=== PATIENT | male | born 1995 | race Caucasian/White ===

== ENCOUNTER 2017-12-01 01:56 | Observation (INO) | payer MEDICARE ==
[2017-12-01 02:34] VITALS: TEMP 98.7; BMI 32.3
--- NOTE | 2017-12-01 02:45 | PDOC ---
History of Present Illness <Elodia Lowe - Last Filed: 12/01/17 05:44> - General History Source: Parent(s) (mother), Other (girlfriend) - History of Present Illness Initial Comments: 12/01/17 02:50 Best Contact:[phone] Pmhx:N/A Pshx:N/A Allergies: NKDA 21-year-old male biba and accompanied with his mother and girlfriend/merry. Patient's girlfriend and mother states patient was sent to [facility] at approximately 1300 hrs. yesterday from his high school after hyperventilating while in school. Patient was in the emergency department for approximately 9 hours there and was discharged. Family states unknown diagnosis. Patient arrived home in [place] approximately one hour ago. As per his girlfriend, he was talking as usual (normal) when he suddenly began to hyperventilate during the disagreement. Patient then insisted on going to the restroom alone. His girlfriend eventually went to the restroom approximately 10 minutes later and found the patient hyperventilating while sitting on the floor. Patient's girlfriend states she does not believe he took any illicit drugs. <Prashanth Berg - Last Filed: 12/01/17 07:02> - General Chief Complaint: Psychiatric Stated Complaint: ANXIETY Time Seen by Provider: 12/01/17 01:57 Past History <Elodia Lowe - Last Filed: 12/01/17 05:44> - Past Medical History COPD: No - Suicide/Smoking/Psychosocial Hx Smoking History: Unknown if ever smoked <Prashanth Berg - Last Filed: 12/01/17 07:02> - Past Medical History Allergies/Adverse Reactions: Allergies Allergy/AdvReac Type Severity Reaction Status Date / Time No Known Allergies Allergy Verified 12/01/17 02:22 Home Medications: Ambulatory Orders NK [No Known Home Medication] 12/01/17 Review of Systems - Review of Systems Able to Perform ROS?: Yes Comments:: 12/01/17 03:44 CONSTITUTIONAL: Absent: fever, chills, diaphoresis, generalized weakness, malaise, loss of appetite HEENT: Absent: rhinorrhea, nasal congestion, throat pain, throat swelling, difficulty swallowing, mouth swelling, ear pain, eye pain, visual Changes CARDIOVASCULAR: Absent: chest pain, loss of consciousness, palpitations, irregular heart rate, peripheral edema RESPIRATORY: Absent: cough, shortness of breath, dyspnea with exertion, orthopnea, wheezing, stridor, hemoptysis GASTROINTESTINAL: Absent: abdominal pain, abdominal distension, nausea, vomiting, diarrhea, constipation, melena, hematochezia GENITOURINARY: Absent: dysuria, frequency, urgency, hesitancy, hematuria, flank pain, genital pain MUSCULOSKELETAL: Absent: myalgia, arthralgia, joint swelling SKIN: Absent: rash, itching, pallor HEMATOLOGIC/IMMUNOLOGIC: Absent: easy bleeding, easy bruising, lymphadenopathy, frequent infections ENDOCRINE: Absent: unexplained weight gain, unexplained weight loss, heat intolerance, cold intolerance NEUROLOGIC: Absent: headache, focal weakness or paresthesias, dizziness, unsteady gait, seizure, mental status changes, bladder or bowel incontinence PSYCHIATRIC: +anxiety Absent: depression, suicidal or homicidal ideation, hallucinations. Is the patient limited Malay proficient: No <Prashanth Berg - Last Filed: 12/01/17 07:02> *Physical Exam - Vital Signs Last Vital Signs Temp Pulse Resp BP Pulse Ox 98.7 F 93 H 14 109/60 98 12/01/17 01:57 12/01/17 03:57 12/01/17 03:57 12/01/17 03:57 12/01/17 03:57 <Elodia Lowe - Last Filed: 12/01/17 05:44> - Vital Signs Last Vital Signs Temp Pulse Resp BP Pulse Ox 98.7 F 123 H 40 H 197/75 100 12/01/17 01:57 12/01/17 01:57 12/01/17 01:57 12/01/17 01:57 12/01/17 01:57 - Physical Exam Comments: 12/01/17 03:45 GENERAL: Well developed, well nourished. Awake and alert. No acute distress. HEENT: Normocephalic, atraumatic. PERRLA, EOMI. No conjunctival pallor. Sclera are non- icteric. Moist mucous membranes. Oropharynx is clear. NECK: Supple. Full ROM. No JVD. Carotid pulses 2+ and symmetric, without bruits. No thyromegaly. No lymphadenopathy. CARDIOVASCULAR: Regular rate and rhythm. No murmurs, rubs, or gallops. Distal pulses are 2+ and symmetric. PULMONARY: No evidence of respiratory distress. Lungs clear to auscultation bilaterally. No wheezing, rales or rhonchi. ABDOMINAL: Soft. Non-tender. Non-distended. No rebound or guarding. No organomegaly. Normoactive bowel sounds. MUSCULOSKELETAL Normal range of motion at all joints. No bony deformities or tenderness. No CVA tenderness. EXTREMITIES: No cyanosis. No clubbing. No edema. No calf tenderness. SKIN: Warm and dry. Normal capillary refill. No rashes. No jaundice. NEUROLOGICAL: Hyperventilating when speaking to him but able to respond. PSYCHIATRIC: Cooperative. Hyperventilation <Prashanth Berg - Last Filed: 12/01/17 07:02> ED Treatment Course - LABORATORY CBC & Chemistry Diagram: 12/01/17 02:20 12/01/17 02:20 - ADDITIONAL ORDERS Additional order review: Laboratory Results 12/01/17 12/01/17 12/01/17 02:49 02:40 02:20 PT with INR INR Sodium Potassium Chloride Carbon Dioxide Anion Gap BUN Creatinine Creat Clearance w eGFR Random Glucose Calcium Total Bilirubin AST ALT Alkaline Phosphatase Total Protein Albumin Urine Color Yellow Urine Appearance Clear Urine pH 6.0 Ur Specific [place] 1.027 Urine Protein Negative Urine Glucose (UA) Negative Urine Ketones Trace H Urine Blood Negative Urine Nitrite Negative Urine Bilirubin Negative Urine Urobilinogen 4.0 e.u/dl Ur Leukocyte Esterase Negative Opiates Screen Negative Methadone Screen Negative Barbiturate Screen Negative Phencyclidine Screen Negative Ur Amphetamines Screen Negative MDMA (Ecstasy) Screen Negative Benzodiazepines Screen Negative Cocaine Screen Negative U Marijuana (THC) Screen Negative Alcohol, Quantitative < 5.0 12/01/17 12/01/17 02:20 02:20 PT with INR 12.80 H INR 1.13 Sodium 141 Potassium 4.0 Chloride 106 Carbon Dioxide 21 Anion Gap 14 BUN 14 Creatinine 1.2 Creat Clearance w eGFR > 60 Random Glucose 87 Calcium 8.9 Total Bilirubin 0.3 AST 23 ALT 28 Alkaline Phosphatase 66 Total Protein 7.7 Albumin 4.2 Urine Color Urine Appearance Urine pH Ur Specific [place] Urine Protein Urine Glucose (UA) Urine Ketones Urine Blood Urine Nitrite Urine Bilirubin Urine Urobilinogen Ur Leukocyte Esterase Opiates Screen Methadone Screen Barbiturate Screen Phencyclidine Screen Ur Amphetamines Screen MDMA (Ecstasy) Screen Benzodiazepines Screen Cocaine Screen U Marijuana (THC) Screen Alcohol, Quantitative 12/01/17 02:20 RBC 4.80 MCV 93.0 MCHC 33.4 RDW 13.0 MPV 9.0 Neutrophils % 58.2 Lymphocytes % 30.6 Monocytes % 9.2 Eosinophils % 1.1 Basophils % 0.9 <Elodia Lowe - Last Filed: 12/01/17 05:44> - LABORATORY CBC & Chemistry Diagram: 12/01/17 02:20 12/01/17 02:20 - RADIOLOGY Radiograph Interpretation: 12/01/17 04:53 CT head w/o head without contrast: no acute pathology <Prashanth Berg - Last Filed: 12/01/17 07:02> Medical Decision Making - Medical Decision Making 12/01/17 05:44 THIS IS A PRELIMINARY REPORT FROM IMAGING DISPLAY DEPARTMENT MANAGER DATE OF SERVICE: 2017-12-01 04:10:35 IMAGES: 146 EXAM: HEAD CT WITHOUT CONTRAST HISTORY: Mental status changes COMPARISON: None. FINDINGS: The ventricular system is midline and nondilated. The sulcal pattern is normal for the patient's age. There is no bleed, mass, extra-axial fluid collection or mass effect. No skull fracture or skull lesion is identified. The visualized paranasal sinuses and mastoid air cells are clear other than minimal left maxillary sinus mucosal thickening. IMPRESSION: No acute pathology. <Elodia Lowe - Last Filed: 12/01/17 05:44> *DC/Admit/Observation/Transfer <Elodia Lowe - Last Filed: 12/01/17 05:44> - Discharge Dispostion Admit: Yes <Prashanth Berg - Last Filed: 12/01/17 07:02> Diagnosis at time of Disposition: Anxiety, Hyperventilation Progress Note - Progress Note Progress Note: 0301hrs: Called Dr. Ferguson [phone] 0419hrs: Called Dr. Ferguson [phone] 0528hrs: Called Dr. Ferguson [phone]/Psychiatry 0658hrs: Dr. Ferguson/ spoke to psychiatry. will Consult <Prashanth Berg - Last Filed: 12/01/17 07:02>
[2017-12-01 03:06] LABS: BASO % 0.9 % (0-2.0); EOS % 1.1 % (0-4.5); HEMATOCRIT 44.6 % (35.4-49); HEMOGLOBIN 14.9 GM/dL (11.7-16.9); LYMPH % 30.6 % (8-40); MCH 31.1 pg (25.7-33.7); MCHC 33.4 g/dl (32.0-35.9); MONO % 9.2 % (3.8-10.2); NEUT % 58.2 % (42.8-82.8); PLATELET COUNT 278 K/MM3 (134-434); WHITE BLOOD COUNT 9.1 K/mm3 (4.0-10.0)
[2017-12-01 03:09] LABS: URINE APPEARANCE CLEAR; URINE BILIRUBIN NEGATIVE (NEGATIVE); URINE BLOOD NEGATIVE (NEGATIVE); URINE COLOR YELLOW; URINE GLUCOSE (UA) NEGATIVE (NEGATIVE); URINE KETONE TRACE (NEGATIVE); URINE LEUK ESTERASE NEGATIVE (NEGATIVE); URINE NITRITE NEGATIVE (NEGATIVE); URINE PROTEIN NEGATIVE (NEGATIVE); URINE UROBILINOGEN 4.0 E.U/dl mg/dL (0.2-1.0)
[2017-12-01 03:18] LABS: INR 1.13 (0.82-1.09); PROTHROMBIN TIME (PATIENT) 12.8 SEC (9.98-11.88)
[2017-12-01 03:22] LABS: COCAINE, UR NEGATIVE ng/ml (CUTOFF=300); METHADONE, UR NEGATIVE ng/ml (CUTOFF=300); OPIATES, URI NEGATIVE ng/ml (CUTOFF=300); PHENCYCLIDINE,URINE NEGATIVE ng/ml (CUTOFF=25); URINE AMPHETAMINES NEGATIVE ng/ml (CUTOFF=500); URINE BARBITURATES NEGATIVE ng/ml (CUTOFF=200); URINE BENZODIAZEPINES NEGATIVE ng/ml (CUTOFF=200)
[2017-12-01 03:29] LABS: ALBUMIN 4.2 g/dl (3.4-5.0); ANION GAP 14 (8-16); BILIRUBIN,TOTAL 0.3 mg/dL (0.2-1.0); BLOOD UREA NITROGEN 14 mg/dL (7-18); CALCIUM 8.9 mg/dL (8.5-10.1); CHLORIDE 106 mmol/L (98-107); CO2 21 mmol/L (21-32); CREATININE 1.2 mg/dL (0.7-1.3); GLUCOSE,RANDOM 87 mg/dL (74-106); SGOT/AST 23 U/L (15-37); SGPT/ALT 28 U/L (12-78); SODIUM 141 mmol/L (136-145); TOT PROT 7.7 g/dl (6.4-8.2)
[2017-12-01 03:30] LABS: ALK PHOS 66 U/L (45-117)
--- NOTE | 2017-12-01 09:41 | HP ---
CHIEF COMPLAINT: hyperventilation PCP: none HISTORY OF PRESENT ILLNESS: This is a 21 year old male with no significant PMHx who presented to the ED after having an episode of hyperventilation. When asked why the patient is here , he responds "I don't know". Mother at bedside states she already provided all the information to the ED provider and states she does not want to repeat herself. Per ED PA note, the patient was at [facility] after hyperventilating in school. The patient was reportedly discharged and the diagnosis is unknown. The patient arrived home and began to hyperventilate again during a disagreement with his girlfriend. The patient denies any chest pain, palpitations, nausea, vomiting, diarrhea, dizziness, recent infection, sick contacts ER course was notable for: (1) Temp 98.7, HR 123, BP 197/75, RR 40, O2 100% on RA -> HR 93, BP 109/60, RR 14, O2 98% on RA (2) Head CT performed, pending read Recent Travel: Denies PAST MEDICAL HISTORY: denies PAST SURGICAL HISTORY: denies Social History: Smoking: denies Alcohol: denies Drugs: denies Family History: Allergies No Known Allergies Allergy (Verified 12/01/17 02:22) HOME MEDICATIONS: Home Medications Medication Instructions Recorded NK [No Known Home Medication] 12/01/17 REVIEW OF SYSTEMS: Limited CONSTITUTIONAL: Absent: fever, chills CARDIOVASCULAR: Absent: chest pain, syncope, palpitations RESPIRATORY: Hyperventilation as above. Absent: cough GASTROINTESTINAL: Absent: nausea, vomiting, diarrhea NEUROLOGIC: Absent: headache, dizziness, seizure PSYCHIATRIC: Absent: anxiety, depression, suicidal or homicidal ideation, hallucinations. PHYSICAL EXAMINATION Vital Signs - 24 hr 12/01/17 12/01/17 01:57 03:57 Temperature 98.7 F Pulse Rate 123 H Pulse Rate [ 93 H Right] Respiratory 40 H 14 Rate Blood Pressure 197/75 Blood Pressure 109/60 [Right Arm] O2 Sat by Pulse 100 98 Oximetry (%) GENERAL: Awake, alert, and fully oriented, in no acute distress. HEAD: Normal with no signs of trauma. EYES: Pupils equal, round and reactive to light, extraocular movements intact, sclera anicteric, conjunctiva clear EARS, NOSE, THROAT: Ears normal, nares patent, oropharynx clear without exudates. Moist mucous membranes. NECK: Normal range of motion LUNGS: Breath sounds equal, clear to auscultation bilaterally. No wheezes, and no crackles. No accessory muscle use. HEART: Regular rate and rhythm, normal S1 and S2 without murmur, rub or gallop. ABDOMEN: Soft, nontender, not distended, normoactive bowel sounds, no guarding, no rebound, no masses. MUSCULOSKELETAL: Normal range of motion at all joints. No bony deformities or tenderness. No CVA tenderness. UPPER EXTREMITIES: 2+ pulses, warm, well-perfused. No cyanosis. No clubbing. No peripheral edema. LOWER EXTREMITIES: 2+ pulses, warm, well-perfused. No calf tenderness. No peripheral edema. NEUROLOGICAL: Cranial nerves II-XII intact. Normal speech. Gait not observed PSYCHIATRIC: Cooperative. Good eye contact. SKIN: Warm, dry, normal turgor, no rashes or lesions noted, normal capillary refill. Laboratory Results - last 24 hr 12/01/17 12/01/17 12/01/17 02:20 02:20 02:20 WBC 9.1 RBC 4.80 Hgb 14.9 Hct 44.6 MCV 93.0 MCH 31.1 MCHC 33.4 RDW 13.0 Plt Count 278 MPV 9.0 Neutrophils % 58.2 Lymphocytes % 30.6 Monocytes % 9.2 Eosinophils % 1.1 Basophils % 0.9 PT with INR 12.80 H INR 1.13 Sodium 141 Potassium 4.0 Chloride 106 Carbon Dioxide 21 Anion Gap 14 BUN 14 Creatinine 1.2 Creat Clearance w eGFR > 60 Random Glucose 87 Calcium 8.9 Total Bilirubin 0.3 AST 23 ALT 28 Alkaline Phosphatase 66 Total Protein 7.7 Albumin 4.2 Urine Color Urine Appearance Urine pH Ur Specific [place] Urine Protein Urine Glucose (UA) Urine Ketones Urine Blood Urine Nitrite Urine Bilirubin Urine Urobilinogen Ur Leukocyte Esterase Opiates Screen Methadone Screen Barbiturate Screen Phencyclidine Screen Ur Amphetamines Screen MDMA (Ecstasy) Screen Benzodiazepines Screen Cocaine Screen U Marijuana (THC) Screen Alcohol, Quantitative 12/01/17 12/01/17 12/01/17 02:20 02:40 02:49 WBC RBC Hgb Hct MCV MCH MCHC RDW Plt Count MPV Neutrophils % Lymphocytes % Monocytes % Eosinophils % Basophils % PT with INR INR Sodium Potassium Chloride Carbon Dioxide Anion Gap BUN Creatinine Creat Clearance w eGFR Random Glucose Calcium Total Bilirubin AST ALT Alkaline Phosphatase Total Protein Albumin Urine Color Yellow Urine Appearance Clear Urine pH 6.0 Ur Specific [place] 1.027 Urine Protein Negative Urine Glucose (UA) Negative Urine Ketones Trace H Urine Blood Negative Urine Nitrite Negative Urine Bilirubin Negative Urine Urobilinogen 4.0 e.u/dl Ur Leukocyte Esterase Negative Opiates Screen Negative Methadone Screen Negative Barbiturate Screen Negative Phencyclidine Screen Negative Ur Amphetamines Screen Negative MDMA (Ecstasy) Screen Negative Benzodiazepines Screen Negative Cocaine Screen Negative U Marijuana (THC) Screen Negative Alcohol, Quantitative < 5.0 Assessment: This is a 21 year old male with no significant PMHx who presented to the ED after having an episode of hyperventilation. Plan: 1) Hyperventilation - Possibly related to anxiety/panic attack - Patient and family unwilling to provide me with any HPI - Head CT completed, pending read - Pending psych evaluation 2) F/E/N: - Regular diet 3) Prophylaxis: - OOB ambulating 4) Dispo: - Awaiting psych consult Visit type - Emergency Visit Emergency Visit: Yes ED Registration Date: 12/01/17 Care time: The patient presented to the Emergency Department on the above date and was hospitalized for further evaluation of their emergent condition. - New Patient This patient is new to me today: Yes Date on this admission: 12/01/17 - Critical Care Critical Care patient: No
--- NOTE | 2017-12-01 13:05 | CON.PSY ---
Psychiatry Consult Chief Complaint: Mom reports anxiety attack, yesterday and last night. Symptoms: reports: Anxiety - Previous Psychiatric Treatment Outpatient: None Inpatient: None - Previous Substance Abuse Treatment Outpatient: None Inpatient: None - Reason for Previous Treatment Reason for Previous Treatment: Anxiety or Panic Disorder - Allergies Allergies: Allergies Allergy/AdvReac Type Severity Reaction Status Date / Time No Known Allergies Allergy Verified 12/01/17 02:22 - Current Living Status Usual Living Arrangement: With Parent - Current Mental Status Evaluation Appearance: Well Groomed Attitude: Cooperative - Affect Affect: Full Range Appropriateness: Appropriate to Content - Mood Mood: Euthymic - Speech/Language Expressive: Coherent - Psychomotor Activity Psychomotor Activity: Normal - Thought Process Thought Process: Intact - Thought Content Hallucinations: Absent Delusions: Absent - Self Perception Self Perception: No Impairment - Cognition Attention: Alert Orientation: Time Memory, Immediate Recall: Intact Memory, Short Term: 3/3 Memory, Remote with Promptin/3 - Abstraction Proverb Interpretation: Intact Judgement: Intact - Insight Insight: Intact - Suicidal Ideation Suicidal Ideation: No - Homicidal Ideation Homicidal Ideation: No Assessment/Plan Ativan 0.5mg po od prn #5 tabs. Follow up with a Psychiatrist.
--- NOTE | 2017-12-01 13:24 | DS ---
Physical Examination Vital Signs: Vital Signs Temperature 98.7 F 12/01/17 01:57 Pulse Rate 79 12/01/17 12:10 Respiratory Rate 16 12/01/17 12:10 Blood Pressure 108/67 12/01/17 12:10 O2 Sat by Pulse Oximetry (%) 99 12/01/17 12:10 Labs: CBC, BMP 12/01/17 02:20 12/01/17 02:20 Discharge Summary Reason For Visit: ANXIETY/HYPERVENTILATION Current Active Problems Anxiety (Acute) Hyperventilation (Acute) - Instructions - Home Medications Comprehensive Discharge Medication List: Ambulatory Orders LORazepam [Ativan] 0.5 mg PO DAILY PRN #5 tablet MDD 5mg 12/01/17
[2017-12-01 14:45] VITALS: BP 112/89; PULSE 92
== END 2017-12-01 14:04 | disposition home or self-care (01) ==
LOC: JER 01:56 → JERBED 07:02
PROVIDERS: ADMIT Internal Medicine; ATTEND Registered Nurse
DX: F41.9 Anxiety disorder, unspecified (principal); R06.4 Hyperventilation
CPT/HCPCS: 36415; 70450-TC; 80053; 80307; 81003; 85025; 85610; 99283-25; G0378